=== PATIENT | male | born 1965 | race Caucasian/White ===

== ENCOUNTER 2019-09-02 13:13 | Emergency (ER) | payer BC ==
[~2019-09-02] VITALS: Ht 175.3 cm; Wt 102.3 kg
[2019-09-02 13:15] VITALS: TEMP 98
[2019-09-02 13:58] LABS: BASO % 0.4 % (0.0-2.0); EOS # 0.1 (0.0-0.7); EOS % 0.7 % (0-4.0); GRAN # 5.5 (1.4-6.5); GRAN % 71.6 % (42.2-75.2); HEMATOCRIT 43.8 % (42.0-52.0); LYMPH # 1.4 (1.2-3.4); LYMPH % 17.7 % (20.0-51.0); MEAN CELL VOLUME 89 fl (80.0-100.0); MEAN CORPUSCULAR HEMOGLOBIN 30 pg (27.0-31.0); MEAN CORPUSCULAR HGB CONC 34 g/dl (33.0-37.0); MEAN PLATELET VOLUME 10.2 fl (7.4-10.4); MONO # 0.7 (0.1-0.6); MONO % 9.3 % (1.7-9.3); PLATELET COUNT 192 K/mm3 (130-400); RED BLOOD COUNT 4.93 M/mm3 (4.20-5.60); REDCELL DISTRIBUTION WIDTH-CV 12.7 % (11.5-14.5)
[2019-09-02 14:06] LABS: ALANINE AMINOTRANSFERASE 26 U/L (21-72); ALBUMIN 4.4 gm/dL (3.5-5.0); ALKALINE PHOSPHATASE 44 U/L (50-136); ANION GAP 8 mmol/L (7-16); AST,SGOT 27 U/L (15-37); BILIRUBIN,TOTAL 0.4 mg/dL (0.0-1.0); BLOOD UREA NITROGEN 17 mg/dL (9-20); CALCIUM 9.3 mg/dL (8.4-10.2); CARBON DIOXIDE 27 mmol/L (22-30); CHLORIDE 103 mmol/L (98-107); CREATININE, serum 0.69 (0.66-1.25); GLUCOSE 158 mg/dL (74-106); POTASSIUM 3.7 mmol/L (3.4-5.0); SODIUM 137 mmol/L (137-145); TOTAL PROTEIN 7.3 gm/dL (6.4-8.2)
[2019-09-02 14:07] LABS: C-REACTIVE PROTEIN 0.5 mg/dL (0.0-0.9)
[2019-09-02] MEDS ORDERED: HCTZ 25MG TAB25 MG PO (14:07)
[2019-09-02] MEDS ORDERED: NORVASC 10MG10 MG PO (14:07)
[2019-09-02] MEDS ORDERED: ZOLOFT 50MG50 MG PO (14:08)
[2019-09-02] MEDS ORDERED: HYDRO TOP (14:08)
[2019-09-02] MEDS ORDERED: LIPITOR 40MG TA40 MG PO (14:08)
[2019-09-02 14:16] LABS: TROPONIN-I < 0.012 ng/mL (0.000-0.035)
[2019-09-02] MEDS ORDERED: ANTIVERT 25MG25 MG PO (15:51)
[2019-09-02] MEDS ORDERED: ZOFRAN ODT4 MG PO (16:24)
[2019-09-02 16:36] VITALS: BP 128/88; PULSE 85
== END 2019-09-02 16:36 | disposition home or self-care (01) ==
LOC: COL.ER 13:13
PROVIDERS: Physician Assistant
DX: R42 Dizziness and giddiness (principal); R53.1 Weakness; F41.9 Anxiety disorder, unspecified; F32.9 Major depressive disorder, single episode, unspecified; I10 Essential (primary) hypertension; E78.5 Hyperlipidemia, unspecified
CPT/HCPCS: J2405; J3360; J7030